=== PATIENT | female | born 1980 | race American Indian/Alaskan Native ===

== ENCOUNTER 2016-04-14 18:01 | Emergency (ER) | payer BC ==
[2016-04-14 20:50] LABS: Basophils % (Auto) 0.6 % (0.0-1.8); Eosinophils % (Auto) 0.6 % (0.0-4.3); Hematocrit 37.5 % (30.3-42.9); Hemoglobin 12.5 gm/dl (10.1-14.3); Mean Corpuscular HGB Conc 33 % (30-34); Mean Corpuscular Hemoglobin 31 pg (28-32); Mean Corpuscular Volume 92 fl (79-97); Platelet Count 326 K/mm3 (140-440); Red Blood Count 4.08 M/mm3 (3.65-5.03); Red Cell Distribution Width 14.2 % (13.2-15.2); White Blood Count 5.9 K/mm3 (4.5-11.0)
[2016-04-14 20:57] LABS: Bacteria,Urine 1+ /HPF (Negative); Mucus,Urine 2+ /HPF
[2016-04-14 21:24] LABS: Bilirubin,Urine NEG (Negative); Blood,Urine NEG (Negative); Ketones,Urine 20 mg/dL (Negative); Leukocyte Esterase,Urine LG (Negative); Nitrite,Urine NEG (Negative); Protein,Urine <15 mg/dL mg/dL (Negative); Urobilinogen,Urine < 2.0 mg/dL (<2.0)
--- NOTE | 2016-04-15 05:16 | Emergency Department Report ---
ED HPI - General Chief complaint: Vaginal Bleeding Stated complaint: 8 WKS PREG/SPOTTING Time Seen by Provider: 04/15/16 03:43 Source: patient Mode of arrival: Ambulatory Limitations: No Limitations - History of Present Illness Initial comments: This is a pleasant patient who reports being 8 weeks by dates. She reports just small amount of spotting over the past 2 days. Denies any vaginal discharge otherwise she denies any dysuria she denies any abdominal pains. She states she's been doing well in general with this . I believe this is her second . Has not sought any OB care yet. MD Complaint: vaginal bleeding Onset/Timin -: days(s) Location: pelvis Severity: mild Improves with: none Worsens with: none Associated symptoms: denies other symptoms Vaginal bleeding: light :: Yes OB History - Current : no complications OB History - Previous Pregnancies: no complications - Related Data Previous Rx's Medication Instructions Recorded Last Taken Type Nitrofurantoin Kershaw/M-Cryst 100 mg PO Q12HR #14 capsule 04/15/16 Unknown Rx [Macrobid CAP] Pnv with Ca,No.72/Iron/FA [Pnv 1 each PO DAILY #90 tablet 04/15/16 Unknown Rx Plus Multivit Tab] Allergies Allergy/AdvReac Type Severity Reaction Status Date / Time No Known Allergies Allergy Verified 04/14/16 19:27 ED Review of Systems ROS: Stated complaint: 8 WKS PREG/SPOTTING Other details as noted in HPI Constitutional: denies: chills, fever Eyes: denies: eye pain, eye discharge, vision change ENT: denies: ear pain, throat pain Respiratory: denies: cough, shortness of breath, wheezing Cardiovascular: denies: chest pain, palpitations Endocrine: no symptoms reported Gastrointestinal: denies: abdominal pain, nausea, diarrhea Genitourinary: other (vainal spotting). denies: urgency, dysuria, discharge Musculoskeletal: denies: back pain, joint swelling, arthralgia Skin: denies: rash, lesions Neurological: denies: headache, weakness, paresthesias Psychiatric: denies: anxiety, depression Hematological/Lymphatic: denies: easy bleeding, easy bruising ED Past Medical Hx - Past Medical History Previous Medical History?: No - Surgical History Additional Surgical History: c- section - Social History Smoking Status: Never Smoker Substance Use Type: None - Medications Home Medications: Home Medications Medication Instructions Recorded Confirmed Last Taken Type Nitrofurantoin Kershaw/M-Cryst 100 mg PO Q12HR #14 capsule 04/15/16 Unknown Rx [Macrobid CAP] Pnv with Ca,No.72/Iron/FA [Pnv 1 each PO DAILY #90 tablet 04/15/16 Unknown Rx Plus Multivit Tab] ED Physical Exam - General Limitations: No Limitations General appearance: alert, in no apparent distress - Head Head exam: Present: atraumatic, normocephalic - Eye Eye exam: Present: normal appearance - ENT ENT exam: Present: mucous membranes moist - Neck Neck exam: Present: normal inspection - Respiratory Respiratory exam: Present: normal lung sounds bilaterally. Absent: respiratory distress - Cardiovascular Cardiovascular Exam: Present: regular rate, normal rhythm. Absent: systolic murmur, diastolic murmur, rubs, gallop - GI/Abdominal GI/Abdominal exam: Present: soft, normal bowel sounds. Absent: tenderness, pulsatile mass - Extremities Exam Extremities exam: Present: normal inspection - Back Exam Back exam: Present: normal inspection - Neurological Exam Neurological exam: Present: alert, oriented X3 - Psychiatric Psychiatric exam: Present: normal affect, normal mood - Skin Skin exam: Present: warm, dry, intact, normal color. Absent: rash ED Course Vital Signs 04/14/16 04/15/16 04/15/16 19:28 02:20 03:10 Temperature 98.5 F 98.0 F 98.6 F Pulse Rate 85 75 83 Respiratory 16 18 20 Rate Blood Pressure 116/82 135/78 Blood Pressure 103/56 [Left] O2 Sat by Pulse 95 100 100 Oximetry 04/15/16 04/15/16 03:15 05:26 Temperature 98.4 F Pulse Rate 82 Respiratory 20 20 Rate Blood Pressure Blood Pressure 110/60 [Left] O2 Sat by Pulse 100 99 Oximetry - Reevaluation(s) Reevaluation #1: 04/15/16 06:30 Formal ultrasound was obtained demonstrating IUP at 8 weeks. Bicornuate uterus is noted. Urinalysis does demonstrate concern for possible infection. Patient was started on nitrofurantoin for this. Blood type is O+. Normal levels are appropriate range. No other concerning features were noted. I did inform patient that she still falls under a threatened miscarriage given the fact that she is having spotting. I think the likelihood is low given the very minimal amount of spotting she is having. Given referral for OB as well. ED Medical Decision Making - Lab Data Result diagrams: 04/14/16 20:06 Critical care attestation.: If time is entered above; I have spent that time in minutes in the direct care of this critically ill patient, excluding procedure time. ED Disposition Clinical Impression: Threatened miscarriage in early , UTI (urinary tract infection) Disposition: DISCHARGED TO HOME OR SELFCARE Is pt being admited?: No Does the pt Need Aspirin: No Condition: Stable Instructions: Threatened Miscarriage (ED) Additional Instructions: Dr. Graves- [employer]obe maker Office: [phone]. [place] [address]. Your blood type is O positive. Prescriptions: Nitrofurantoin Kershaw/M-Cryst [Macrobid CAP] 100 mg PO Q12HR #14 capsule Pnv with Ca,No.72/Iron/FA [Pnv Plus Multivit Tab] 1 each PO DAILY #90 tablet Referrals: PRIMARY CARE, [Primary Care Provider] - 3-5 Days Time of Disposition: 05:18
--- NOTE | 2016-04-15 05:28 | Ultrasound Report ---
FINAL REPORT PROCEDURE: US OB TRANSVAGINAL TECHNIQUE: Real-time transabdominal and transvaginal sonography of the uterus, placenta, amniotic fluid, adnexa, and fetus was performed with image documentation. Measurements were obtained to determine age/size. M-mode Doppler was used to document heartbeat. [place] 35022 [place] [address]76 HISTORY: vaginal bleeding 8 weeks by dates COMPARISON: No prior studies are available for comparison. FINDINGS: ADDITIONAL GESTATION: None. CRL: 15.9 mm, which corresponds to a gestational age of: 8 weeks, 0 days. Yolk Sac: Normal. Embryonic Cardiac Activity: 162 beats per minute Gestational Sac: Normal. Amniotic fluid: Normal. Cervix: Normal. Right Ovary: Normal. Left Ovary: There is a cyst on the left ovary this measures 16 millimeters Estimated delivery date: 11/25/2016 Uterus and adnexa: The uterus has a bicornuate shape. IMPRESSION: 1. Single live intrauterine gestation at approximately 8 weeks, 0 days. 2. EDC by US 11/24/2016 3. Uterus is bicornuate. There is a cyst on the left ovary this measures 16 millimeters.
--- NOTE | 2016-04-15 05:28 | Ultrasound Report ---
FINAL REPORT PROCEDURE: US OB trans abdominal and transvaginal TECHNIQUE: Real-time transabdominal and transvaginal sonography of the uterus, placenta, amniotic fluid, adnexa, and fetus was performed with image documentation. Measurements were obtained to determine age/size. M-mode Doppler was used to document heartbeat. CPT 03494 and [id number] HISTORY: vaginal bleeding 8 weeks by dates COMPARISON: No prior studies are available for comparison. FINDINGS: ADDITIONAL GESTATION: None. CRL: 15.9 mm, which corresponds to a gestational age of: 8 weeks, 0 days. Yolk Sac: Normal. Embryonic Cardiac Activity: 162 beats per minute Gestational Sac: Normal. Amniotic fluid: Normal. Cervix: Normal. Right Ovary: Normal. Left Ovary: There is a cyst on the left ovary this measures 16 millimeters Estimated delivery date: 11/25/2016 Uterus and adnexa: The uterus has a bicornuate shape. IMPRESSION: 1. Single live intrauterine gestation at approximately 8 weeks, 0 days. 2. EDC by US 11/24/2016 3. Uterus is bicornuate. There is a cyst on the left ovary this measures 16 millimeters. PROCEDURE: TECHNIQUE: HISTORY: COMPARISON: FINDINGS: IMPRESSION:
[2016-04-15 05:29] VITALS: BP 110/60
== END 2016-04-15 05:48 | disposition home or self-care (01) ==
LOC: ED 18:01
DX: O20.0 Threatened abortion (principal); O23.41 Unspecified infection of urinary tract in pregnancy, first trimester; Z3A.08 8 weeks gestation of pregnancy
CPT/HCPCS: 36415; 76801; 76817; 81001; 84702; 85025; 86850; 86900; 86901